=== PATIENT | female | born 1985 | race Caucasian/White ===

== ENCOUNTER 2022-01-01 11:45 | Outpatient (CLI) | payer OTHER, SELFPAY ==
--- NOTE | ~2022-01-01 | MMUS_ITS ---
EXAMINATION: MM diagnostic joe BI w jacki, US breast LT limited HISTORY: Palpable lump of the upper outer quadrant of the left breast, mastitis TECHNIQUE: Craniocaudal, mediolateral, and mediolateral oblique 3-D tomosynthesis images of the cayetano ts were performedbreasts. CAD analysis was submitted and interpreted. High resolution limited left br east ultrasound was performed. COMPARISON: None, baseline BREAST PARENCHYMAL COMPOSITION: The breasts are extremely dense, which lowers the sensitivity of mamm ography. FINDINGS: MAMMOGRAPHIC FINDINGS: There is no suspicious mass, calcification, or architectural distortion in either breast to suggest malignancy. No mammographic correlate is identified for the reported palpable abnormality of concern. ULTRASOUND: There is no evidence of focal abnormal solid or cystic mass in the vicinity of the reported palpable abnormality of the left breast. IMPRESSION: 1. No specific mammographic or sonographic correlate is identified for the reported palpable abnormal ity of concern. Further evaluation at this time should be based on clinical assessment. Continued fol low-up physical examination is recommended. 2. Recommend routine screening mammography beginning at age 40. BI-RADS Category 1: Negative Reviewed, dictated and finalized at location A. IMPRESSION: 1. No specific mammographic or sonographic correlate is identified for the repo rted palpable abnormality of concern. Further evaluation at this time should be based on clinical assessment. Continued follow-up physical examination is danni mmended. 2. Recommend routine screening mammography beginning at age 40. BI-RADS Category 1: Negative
== END 2022-01-01 11:46 | disposition home or self-care (01) ==
LOC: ANHIMG 11:49
PROVIDERS: Visit Provider Internal Medicine
DX: N61.0 Mastitis without abscess (principal)
CPT/HCPCS: 76642; 77062; 77066; G0279

== ENCOUNTER 2022-10-31 10:32 | Emergency (ER) | payer OTHER, SELFPAY ==
[2022-10-31 10:38] VITALS: BP 118/73; PULSE 86; RESP 16; TEMP 36.7; O2SAT 100
--- NOTE | 2022-10-31 10:58 | ECG_ITS ---
Measurements Intervals [place] Rate: 77 P: 72 [place]: 141 QRS: 72 QRSD: 121 T: 30 QT: 385 QTc: 436 Interpretive Statements SINUS RHYTHM RIGHT BUNDLE BRANCH BLOCK ABNORMAL ECG NO PREVIOUS ECG AVAILABLE FOR COMPARISON Electronically Signed On 10-31-2022 13:18:23 TOP FORMER by Jay Hatch D.O.
--- NOTE | 2022-10-31 10:59 | ED.GENADULT ---
HPI - General Adult General Chief complaint: Unspecified Stated complaint: left side chest shoulder and neck pain Time Seen by Provider: 10/31/22 10:59 Mode of arrival: ambulatory History of Present Illness HPI narrative: PATIENT IS BROUGHT IN FOR EVALUATION OF LEFT ARM PAIN THAT RADIATES TO CHEST WITH SHORTNESS OF BREATH AT TIMES. PATIENT IS BROUGHT IN BY HER PARENTS PATIENT HAS NO HISTORY OF HEART PROBLEMS ELEVATED BLOOD PRESSURE ARE LUNG PROBLEMS. PATIENT DOES HAVE A HISTORY OF SEIZURES. Related Data Home Medications Medication Instructions Recorded Confirmed benztropine 2 mg tablet mg 10/31/22 divalproex 250 mg tablet,extended mg PO 10/31/22 release 24 hr lamotrigine 100 mg tablet mg 10/31/22 levetiracetam 750 mg tablet mg PO 10/31/22 levothyroxine 150 mcg tablet mcg 10/31/22 olanzapine 20 mg tablet mg 10/31/22 Allergies Allergy/AdvReac Type Severity Reaction Status Date / Time No Known Allergies Allergy Verified 10/31/22 10:41 Review of Systems Review of Systems: CONSTITUTIONAL: DENIES FEVER, CHILLS, OR SWEATS. EYES: DENIES VISUAL CHANGES, REDNESS, OR DISCHARGE. ENT: DENIES RHINORRHEA, CONGESTION, SORE THROAT, OR OTALGIA. CARDIOVASCULAR: DENIES , PALPITATIONS, OR EDEMA. REPORTS MIDSTERNAL CHEST PAIN RESPIRATORY: DENIES COUGH REPORTS DYSPNEA. GASTROINTESTINAL: DENIES ABDOMINAL PAIN, NAUSEA, VOMITING, OR DIARRHEA. GENITOURINARY: DENIES DYSURIA OR HEMATURIA. SKIN: DENIES RASH OR ITCHING. MUSCULOSKELETAL: DENIES BACK PAIN, JOINT PAIN, OR MYALGIA. LEFT ARM PAIN THAT RADIATES UNDER LEFT AXILLA 2 BACK NEUROLOGIC: DENIES HEADACHE, NUMBNESS, OR WEAKNESS. PSYCHIATRIC: DENIES ANXIETY OR DEPRESSION. PMFSH Comments AT TIME OF SIGNATURE, AGREE WITH NURSING PAST MEDICAL, SURGICAL, SOCIAL AND FAMILY HISTORY. THERE IS NO RELEVANT FAMILY HISTORY PERTINENT TO THE PRESENTING COMPLAINT Exam Narrative: GENERAL: WELL-APPEARING, WELL-NOURISHED, AND IN NO ACUTE DISTRESS. HEAD: NORMOCEPHALIC, ATRAUMATIC. EYES: PERRLA AND EOMI. ENT: NARES CLEAR, NO RHINORRHEA OR EPISTAXIS. MUCOUS MEMBRANES MOIST. NECK: SUPPLE. CHEST: CLEAR TO AUSCULTATION. NO RESPIRATORY DISTRESS. HEART: REGULAR RATE AND RHYTHM. NO MURMUR HEARD. NORMAL PERIPHERAL PULSES. ABDOMEN: SOFT, NONTENDER, NONDISTENDED, NORMAL ACTIVE BOWEL SOUNDS. EXTREMITIES: NORMAL RANGE OF MOTION. NO EDEMA. SKIN: WARM, DRY, NO RASH. NEURO: NO FOCAL DEFICITS. ALERT AND ORIENTED X3. MIKE COMA SCALE EYE OPENING: SPONTANEOUS 4 MIKE COMA SCALE MOTOR: OBEYS COMMANDS 6 MIKE COMA SCALE VERBAL: ORIENTED 5 MIKE COMA SCALE TOTAL 15 Course Course Level of Care: Express Care Visit Vital Signs Vital signs: Vital Signs Temperature 36.7 C 10/31/22 10:38 Pulse Rate 86 10/31/22 10:38 Respiratory Rate 16 10/31/22 10:38 Blood Pressure 118/73 10/31/22 10:38 Pulse Oximetry 100 10/31/22 10:38 Oxygen Delivery Room Air 10/31/22 10:38 Temperature 36.7 C 10/31/22 10:38 Pulse Rate 86 10/31/22 10:38 Respiratory Rate 16 10/31/22 10:38 Blood Pressure 118/73 10/31/22 10:38 Pulse Oximetry 100 10/31/22 10:38 Oxygen Delivery Room Air 10/31/22 10:38 DISCUSSED WITH PATIENT'S PARENTS AND PATIENT COMPLAINT OF LEFT ARM PAIN RADIATING TO BACK KNEE AND MIDSTERNAL CHEST PAIN WITH SHORTNESS OF BREATH NEED TO TRANSFER PATIENT TO THE [facility] ER FOR FURTHER EVALUATION TREATMENT Transfer Transfered to: [facility] Transportation: Other (PARENTS PREFER TO TAKE PATIENT BY PRIVATE VEHICLE DECLINE TRANSFER BY AMBULANCE) Transfer rationale: HIGHER LEVEL OF CARE FOR EVALUATION OF CHEST PAIN AND SHORTNESS OF BREATH Accepting physician: DR. PRATT Medical Decision Making Vital Signs Vital Signs: Vital Signs Temperature 36.7 C 10/31/22 10:38 Pulse Rate 86 10/31/22 10:38 Respiratory Rate 16 10/31/22 10:38 Blood Pressure 118/73 10/31/22 10:38 Pulse Oximetry 100 10/31/22 10:38 Oxygen Delivery Room Air 10/31/22 1
== END 2022-10-31 11:15 | disposition short-term general hospital (02) ==
PROVIDERS: Emergency Provider Nurse Practitioner Family; PCP Internal Medicine
DX: R07.9 Chest pain, unspecified (principal); M79.602 Pain in left arm; R06.00 Dyspnea, unspecified; I45.10 Unspecified right bundle-branch block
CPT/HCPCS: 93005; 99213; G0463

== ENCOUNTER 2024-09-01 12:51 | Emergency (ER) | payer OTHER, SELFPAY ==
--- NOTE | ~2024-09-01 | XR_ITS ---
XR foot RT min 3V DATE: 09/01/2024 14:17 INDICATION: Bruising TECHNIQUE: 4 views COMPARISON: None FINDINGS: No fracture or dislocation, periosteal reaction or bone destruction. No erosive changes. No calcaneal enthesopathy. IMPRESSION: No significant abnormality Reviewed, dictated and finalized at location A. DING MACHINE OPERATOR AUTOMATIC IMPRESSION: No significant abnormality
[2024-09-01 12:55] VITALS: BP 111/65; PULSE 82; RESP 20; TEMP 37.1; O2SAT 100
--- NOTE | 2024-09-01 13:17 | ED.GENADULT ---
HPI - General Adult General Chief complaint: Eye Problems Stated complaint: Eye Problem/Toe Injury History of Present Illness HPI narrative: 38 y/o female with history of seizure disorder presented for multiple concerns. Reports pain to right 4th toe after she struck it on stationary bike yesterday. Endorses bruising and swelling, rates pain 8/10. Reports irritation and drainage to left eye, onset yesterday. Unsure of the color of the drainage. Denies vision changes, eye pain, swelling or light sensitivity. Reports mild sore throat and says she was exposed to strep. Denies n/v/d/f/c. Related Data Home Medications Medication Instructions Recorded Confirmed benztropine 2 mg tablet 2 mg PO DIRECTED 10/31/22 09/01/24 divalproex 250 mg tablet,extended 250 mg PO DIRECTED 10/31/22 09/01/24 release 24 hr lamotrigine 100 mg tablet 100 mg PO DIRECTED 10/31/22 09/01/24 levetiracetam 750 mg tablet 750 mg PO DIRECTED 10/31/22 09/01/24 levothyroxine 150 mcg tablet 150 mcg PO DIRECTED 10/31/22 09/01/24 olanzapine 20 mg tablet 20 mg PO DIRECTED 10/31/22 09/01/24 Allergies Allergy/AdvReac Type Severity Reaction Status Date / Time No Known Allergies Allergy Verified 09/01/24 13:37 Review of Systems Review of Systems: CONSTITUTIONAL: Denies body aches, fever, chills, or sweats. EYES: reports left eye irritation Denies visual changes, redness, or FB sensation ENT: reports sore throat Denies rhinorrhea, congestion, or otalgia. CARDIOVASCULAR: Denies chest pain, palpitations, or edema. RESPIRATORY: Denies dyspnea. GASTROINTESTINAL: Denies abdominal pain, nausea, vomiting, or diarrhea. SKIN: Denies rash, itching, or wounds. MUSCULOSKELETAL: reports right 4th toe pain Denies back pain, joint pain, or myalgia. NEUROLOGIC: Denies headache PMFSH Past Medical History Medical History (Updated 09/01/24 @ 14:43 by Cailin Mancuso APRN) Hypothyroid Seizure Surgical History Surgical History (Updated 09/01/24 @ 14:43 by Cailin Mancuso APRN) H/O brain surgery Exam Narrative: GENERAL: well-appearing, no acute distress. EYES: PERRLA, EOMI. mild left conjunctival injection; no apparent discharge. No FB noted with eyelid eversion. ENT: Mucous membranes moist. TMs pearly gonzalez with normal light reflex bilaterally; no tragal tenderness. Oropharynx erythematous without lesions. Tonsils not enlarged and without exudate. No drooling, no hoarseness, no trismus, uvula midline. No tripod positioning, hot potato voice, or soft palate swelling. CHEST: Clear to auscultation, breath sounds equal. HEART: Regular rate and rhythm. SKIN: Warm, dry MUSC: Right 4th toe with bruising and mild swelling to distal phalanx. Mild ttp. No deformity. NEURO: Alert and oriented x3. PSYCH: Flat, slow to respond Course Course Emergency Course: Patient is aware of diagnosis, understands and agrees to treatment plan. Anticipatory guidance given. Patient agrees to follow-up as directed and is aware of reasons to seek care at the emergency department. Portions of this record may have been created with voice recognition software Level of Care: Express Care Visit Vital Signs Vital signs: Vital Signs Temperature 98.8 F 09/01/24 12:55 Pulse Rate 82 09/01/24 12:55 Respiratory Rate 20 09/01/24 12:55 Blood Pressure 111/65 09/01/24 12:55 Pulse Oximetry 100 09/01/24 12:55 Temperature 98.8 F 09/01/24 12:55 Pulse Rate 82 09/01/24 12:55 Respiratory Rate 20 09/01/24 12:55 Blood Pressure 111/65 09/01/24 12:55 Pulse Oximetry 100 09/01/24 12:55 Medical Decision Making [facility] Narrative Medical decision making narrative: Discussed physical exam findings, Reviewed foot xray and strep result. Advised supportive measures and signs/symptoms to go to the ER. Pt is appropriate for outpt treatment and f/u. Differential Diagnosis Differential Diagnosis: allergic reaction, urticaria, angioedema, dermatitis, cellulitis, blepharitis, stye, dacryoadenitis, conjunctivitis, uveitis; toe fracture, dislocation, contusion Vital Signs Vital Signs: Vital Signs Temperature 98.8 F 09/01/24 12:55 Pulse Rate 82 09/01/24 12:55 Respiratory Rate 20 09/01/24 12:55 Blood Pressure 111/65 09/01/24 12:55 Pulse Oximetry 100 09/01/24 12:55 Temperature 98.8 F 09/01/24 12:55 Pulse Rate 82 09/01/24 12:55 Respiratory Rate 20 09/01/24 12:55 Blood Pressure 111/65 09/01/24 12:55 Pulse Oximetry 100 09/01/24 12:55 Lab Data Labs: Lab Results 09/01/24 Range/Units 13:30 POC Grp A Strep Screen Negative (Negative) Imaging Data Radiologist's impression: Patient: Rhea Begum : 1985 MR#: [id number] Age: 38 Acct:[id number] Loc: [facility] ADM Date: 09/01/24Attending Dr: Ordering Physician: Cailin Mancuso APRN Date of Service: 09/01/24 Procedure(s): XR foot RT min 3V Accession Number(s): [id number] cc: Zion, Saúl Diaz MD; Cailin Mancuso APRN~ XR foot RT min 3V DATE: 09/01/2024 14:17 INDICATION: Bruising TECHNIQUE: 4 views COMPARISON: None FINDINGS: No fracture or dislocation, periosteal reaction or bone destruction. No erosive changes. No calcaneal enthesopathy. IMPRESSION: No significant abnormality Discharge Plan Discharge Clinical Impression: Conjunctivitis, Bruise of toe Patient Disposition: Home, Self-Care Condition: Stable Instructions: Antibiotic Form, Toe Fracture (ED), Conjunctivitis (ED) Additional Instructions: Eye: Avoid touching or rubbing your eye. Use over the counter lubricating eye drops as needed for irritation Use a warm or cool washcloth on your eye for comfort Use eyedrops as directed - you are contagious for 24 hours after starting the antibiotic Practice good handwashing and hygiene to prevent spread of infection Do not wear the contact lenses. Use a new pair after the infection is resolved. Use new makeup, lashes etc. You may take Tylenol or ibuprofen for pain Follow-up with PCP or fire control assistant if condition is not improving in 2-3days. Go to the emergency room if you have severe pain or pressure behind your eye, difficulty seeing, or other severe symptoms Rest. Avoid running or excessive walking-- or anything that worsens the toe pain Tylenol 1000mg every 8 hours as needed, You can alternate with ibuprofen 600mg Rest and elevate the right leg; bear weight as tolerated Apply ice 15-20 minute intervals several times a day Follow up with your primary care provider as needed in 1 week Go to the ER for any worsening symptoms or concerns Prescriptions: New polymyxin B sulf-trimethoprim 10,000 unit- 1 mg/mL drops 1 drp LEFT EYE Q3H 7 Days Qty: 10 0RF Rx Instructions: while awake; do not exceed 6 doses in 24 hours No Action levothyroxine 150 mcg tablet 150 mcg PO DIRECTED benztropine 2 mg tablet 2 mg PO DIRECTED levetiracetam 750 mg tablet 750 mg PO DIRECTED olanzapine 20 mg tablet 20 mg PO DIRECTED lamotrigine 100 mg tablet 100 mg PO DIRECTED divalproex 250 mg tablet extended release 24 hr 250 mg PO DIRECTED Follow-up/Referrals: Zion,Moises Diaz MD [Primary Care Provider] - Time of Disposition: 14:41
[2024-09-01 13:49] LABS: EDSTREPNEGPOS1 Negative (Negative)
== END 2024-09-01 14:55 | disposition home or self-care (01) ==
PROVIDERS: Emergency Provider Nurse Practitioner Family; PCP Internal Medicine
DX: H10.9 Unspecified conjunctivitis (principal); S90.121A Contusion of right lesser toe(s) without damage to nail, initial encounter; W22.8XXA Striking against or struck by other objects, initial encounter; G40.909 Epilepsy, unspecified, not intractable, without status epilepticus; E03.9 Hypothyroidism, unspecified
CPT/HCPCS: 73630; 87081; 87880; 99213; G0463